=== PATIENT | male | born 1985 | race Caucasian/White ===

== ENCOUNTER 2021-07-05 09:27 | Emergency (ER) | payer OTHER ==
[~2021-07-05 09:27] MED LIST: BENTYL 10MG CAP10 MG PO; EXPECTORANT200 MG PO; FLONASE 0.05% N16 GM; IBUPROFEN600 MG PO; PREDNISONE 50 M50 MG PO; SUDOGEST60 MG PO; TESSALON PERLE100 MG PO; VENTOLIN HFA 66.7 GM INH; ZOFRAN4 MG PO
[2021-07-05 10:25] LABS: RED BLOOD COUNT 5.03 M/UL (4.20-5.50); WHITE BLOOD COUNT 6.3 K/UL (4.5-11.0)
[2021-07-05 11:13] LABS: BUN/CREATININE RATIO 14 (0-10)
[2021-07-05] MEDS ORDERED: NAPROSYN500 MG PO (11:41)
== END 2021-07-05 11:00 | disposition home or self-care (01) ==
LOC: ER1 09:27
PROVIDERS: Physician Assistant
DX: R06.00 Dyspnea, unspecified (principal); F17.210 Nicotine dependence, cigarettes, uncomplicated
CPT/HCPCS: 71045; 80048; 82550; 82553; 84484; 85025; 85379; 93005; 99285; J1885

== ENCOUNTER 2021-07-15 17:48 | Emergency (ER) | payer OTHER ==
[~2021-07-15 17:48] MED LIST changes: +NAPROSYN500 MG PO
[2021-07-15 20:50] LABS: HEMOGLOBIN 16.1 gm/dl (14.0-17.5); RED BLOOD COUNT 5.14 M/UL (4.20-5.50); WHITE BLOOD COUNT 7.5 K/UL (4.5-11.0)
[2021-07-15 21:09] LABS: BUN/CREATININE RATIO 13 (0-10)
== END 2021-07-15 23:39 | disposition home or self-care (01) ==
LOC: ER1 17:48
PROVIDERS: Physician Assistant
DX: R31.29 Other microscopic hematuria (principal); R10.32 Left lower quadrant pain; F17.210 Nicotine dependence, cigarettes, uncomplicated
CPT/HCPCS: 80053; 81001; 83690; 85025; 99284